=== PATIENT | female | born 1945 ===

== ENCOUNTER 2018-07-07 13:16 | Inpatient (IN) | payer OTHER ==
[~2018-07-07] VITALS: Ht 152.4 cm; Wt 64.4 kg
[2018-07-07] MEDS ORDERED: FORTAMET1000 MG PO (14:34)
[2018-07-07] MEDS ORDERED: LANTUS SOL100 UNIT/1 (14:34)
[2018-07-07] MEDS ORDERED: TOPROL XL50 MG PO (14:35)
[2018-07-07] MEDS ORDERED: LISINOPRIL20 MG PO (14:35)
[2018-07-19] MEDS ORDERED: DOCUSATE SODIU100 MG PO (09:13)
[2018-07-19] MEDS ORDERED: CLONAZEPAM1 MG PO (09:14)
[2018-07-19] MEDS ORDERED: PERCOCET 5-3251 EACH PO (09:14)
== END 2018-07-19 15:38 | disposition home or self-care (01) | DRG 454 ==
LOC: SURH 07-18 05:10 → O/R 07-18 05:10 → SURH 07-18 07:00
PROVIDERS: Orthopaedic Surgery Orthopaedic Surgery of the Spine
PROC: 0RG2071 Fusion of 2 or more Cervical Vertebral Joints with Autologous Tissue Substitute, Posterior Approach, Posterior Column, Open Approach (ICD-10-PCS; 2018-07-18)
PROC: 0RT30ZZ Resection of Cervical Vertebral Disc, Open Approach (ICD-10-PCS; 2018-07-18)
PROC: 07DS3ZZ Extraction of Vertebral Bone Marrow, Percutaneous Approach (ICD-10-PCS; 2018-07-18)
PROC: 0RG20A0 Fusion of 2 or more Cervical Vertebral Joints with Interbody Fusion Device, Anterior Approach, Anterior Column, Open Approach (ICD-10-PCS; principal; 2018-07-18 07:00)
DX: M50.021 Cervical disc disorder at C4-C5 level with myelopathy (principal); M47.12 Other spondylosis with myelopathy, cervical region; I10 Essential (primary) hypertension; E11.9 Type 2 diabetes mellitus without complications